=== PATIENT | female | born 1965 | race Caucasian/White ===

== ENCOUNTER 2020-07-01 01:11 | Observation (INO) ==
[2020-07-01] MEDS ORDERED: Isovue-370 500 ML BOTTLE IVP ONE (01:24)
[2020-07-01] MEDS ORDERED: *HR* HYDROmorphone (PF) 1 MG/ML SYRINGE IVP ONE ×2 (01:24→03:49)
[2020-07-01] MEDS ORDERED: 0.9 % Sodium Chloride 1,000 ML IVC ONE (01:24)
[2020-07-01 01:48] LABS: Basophils # 0.1 K/mcL (0.0-0.2); Basophils % 0.4 %; Eosinophils # 0.2 K/mcL (0.0-0.6); Eosinophils % 1.1 %; Hematocrit 39.9 % (35.3-44.9); Hemoglobin 13.7 g/dL (11.5-15.4); Immature Granulocytes % 0.6 % (0-4); Lymphocytes % 13.1 %; Mean Corpuscular HGB Conc 34.3 g/dL (31.6-35.5); Mean Corpuscular Hemoglobin 29.8 pg (28.0-33.3); Mean Corpuscular Volume 86.9 fL (83.0-100.0); Mean Platelet Volume 9.3 fL (9.4-12.4); Monocytes # 1.4 K/mcL (0.0-1.3); Monocytes % 8.8 %; Neutrophils # 11.6 K/mcL (1.6-8.9); Platelet Count 304 K/mcL (140-400); Red Blood Count 4.59 M/mcL (3.82-4.97); White Blood Count 15.3 K/mcL (4.3-11.1)
[2020-07-01 02:05] LABS: Alanine Aminotransferase 15 Units/L (7-52); Albumin 4.1 g/dL (3.5-5.7); Albumin/Globulin Ratio 1.3 (1.1-2.2); Alkaline Phosphatase 50 Units/L (34-104); Aspartate Amino Transferase 17 Units/L (13-39); BUN/Creatinine Ratio 16 (6-26); Bilirubin,Direct 0.1 mg/dL (0.0-0.2); Bilirubin,Indirect 0.5 mg/dL (0.0-1.0); Bilirubin,Total 0.6 mg/dL (0.3-1.0); Blood Urea Nitrogen 18 mg/dL (6-20); Calcium 9.6 mg/dL (8.6-10.3); Carbon Dioxide 21 mEq/L (23-29); Chloride 103 mEq/L (98-107); Globulin 3.2 g/dL (2.4-3.5); Glucose 151 mg/dL (70-105); Lipase 34 Units/L (11-82); Osmolality,Calculated 291 (280-300); Potassium 3.5 mEq/L (3.5-5.1); Sodium 138 mEq/L (136-145); Total Protein 7.3 g/dL (6.4-8.9); eGFR For African Americans > 60 (> 60); eGFR For Non-African Americans 50 (> 60)
[2020-07-01] MEDS ORDERED: Ondansetron 4 MG/2 ML VIAL IVP ONE (02:16)
[2020-07-01 02:40] LABS: Troponin I < 0.03 ng/mL (< 0.04)
[2020-07-01] MEDS ORDERED: Piperacillin/Tazobactam 3.375 GM in 0.9 % Sodium Chloride Mini Bag 100 ML IVPB ONE (03:40)
[2020-07-01] MEDS ORDERED: Ketorolac 15 MG/ML VIAL IVP ONE (04:04)
[2020-07-01] MEDS ORDERED: Ondansetron ODT 4 MG TAB.RAPDIS SL PRN ×2 (04:14→13:41)
[2020-07-01] MEDS ORDERED: Naloxone 0.4 MG/ML INJ IVP PRN ×2 (04:14→13:41)
[2020-07-01 04:26] LABS: Bilirubin,Urine Negative (Negative); Blood,Urine Negative (Negative); Clarity,Urine Clear (Clear); Color,Urine Light-Yellow (Yellow); Glucose,Urine (UA) Normal (Normal); Ketones,Urine 10 mg/dL (Negative); Leukocyte Esterase,Urine Small (Negative); Mucus,Urine Few per lpf (None-Few); Nitrite,Urine Positive (Negative); PH,Urine 6.5 pH Units (5.0-8.0); Protein,Urine Trace mg/dL (Neg-Trace); RBC,Urine 0-3 per hpf (0-3); Specific Gravity,Urine > 1.030 (1.010-1.025); Squamous Epithelial Cell,Urine Moderate per hpf (None-Few); Urobilinogen,Urine Normal (Normal)
[2020-07-01] MEDS ORDERED: D5% in Water 1,000 ML IVC PRN ×2 (04:33→13:41)
[2020-07-01] MEDS ORDERED: Dextrose Gel 15 GM/37.5 ML TUBE PO PRN ×4 (04:33→13:41)
[2020-07-01] MEDS ORDERED: *HR* Dextrose 50 % in Water (Vial) 50 ML VIAL IVP PRN ×2 (04:33→13:41)
[2020-07-01] MEDS ORDERED: Insulin LISPRO 300 UNITS/3 ML VIAL SUBQ SCH (06:00)
[2020-07-01] MEDS ORDERED: *HR* Heparin 5,000 UNIT/ML VIAL SQ SCH (06:00)
[2020-07-01] MEDS ORDERED: *HR* OxyCODONE Immed Rel 5 MG TABLET PO PRN (08:59)
[2020-07-01] MEDS ORDERED: Ondansetron 4 MG/2 ML VIAL IVP PRN (08:59)
[2020-07-01] MEDS ORDERED: *HR* HYDROmorphone PF 0.5 MG/0.5 ML SYRINGE IVP PRN (08:59)
[2020-07-01] MEDS ORDERED: Ringers Solution, Lactated 1,000 ML IVC SCH (09:00)
[2020-07-01] MEDS ORDERED: *HR* Propofol 200 MG/20 ML VIAL IVP ONE (09:12)
[2020-07-01] MEDS ORDERED: *HR* FentaNYL (PF) 100 MCG/2 ML VIAL ONE (09:12)
[2020-07-01] MEDS ORDERED: *HR* Midazolam HCl 2 MG/2 ML VIAL ONE (09:12)
[2020-07-01] MEDS ORDERED: *HR* Rocuronium Bromide 50 MG/5 ML VIAL ONE (09:20)
[2020-07-01] MEDS ORDERED: Lidocaine -MPF 2% 2 ML VIAL ONE (09:20)
[2020-07-01] MEDS ORDERED: *HR* Succinylcholine 200 MG/10 ML VIAL IVP ONE (09:20)
[2020-07-01] MEDS ORDERED: Sugammadex Sodium 200 MG/2 ML VIAL IV ONE (09:20)
[2020-07-01] MEDS ORDERED: Dexamethasone 4 MG/ML VIAL ONE (09:20)
[2020-07-01] MEDS ORDERED: Lidocaine HCL 4 ML Topical Solution (Laryng-O-Jet Kit Sterile Pak) TP ONE (09:20)
[2020-07-01] MEDS ORDERED: Ondansetron 4 MG/2 ML VIAL ONE (09:20)
[2020-07-01] MEDS ORDERED: Ketorolac 30 MG/ML VIAL ONE (09:57)
[2020-07-01] MEDS ORDERED: Acetaminophen IV 1,000 MG/100 ML BAG IVPB ONE (09:59)
[2020-07-01] MEDS ORDERED: Isovue-300 50ML VIAL ONE (10:08)
[2020-07-01] MEDS ORDERED: EPHEDrine 50 MG/ML VIAL ONE (10:32)
[2020-07-01] MEDS ORDERED: *HR* HYDROMORPHONE 2 MG/ML VIAL ONE (10:45)
[2020-07-01] MEDS ORDERED: *HR* Labetalol 20 MG/4 ML SYRINGE IVP ONE (10:54)
[2020-07-01] MEDS ORDERED: Piperacillin/Tazobactam 3.375 GM in 0.9 % Sodium Chloride Mini Bag 100 ML IVPB SCH (11:00)
[2020-07-01] MEDS: Aspirin Enteric Coated 81 MG Tablet PO SCH (14:41)
[2020-07-01] MEDS: Gabapentin 300 MG CAPSULE PO SCH ×2 (14:42→21:27)
[2020-07-01] MEDS: *HR* Heparin 5,000 UNIT/ML VIAL SQ SCH (17:28)
[2020-07-01] MEDS: Insulin LISPRO 300 UNITS/3 ML VIAL SUBQ SCH (18:12)
[2020-07-01] MEDS: Piperacillin/Tazobactam 3.375 GM in 0.9 % Sodium Chloride Mini Bag 100 ML IVPB SCH (18:52)
[2020-07-01] MEDS ORDERED: traZODone 50 MG TABLET PO SCH (21:00)
[2020-07-01] MEDS ORDERED: Carbidopa/Levodopa 25/100 TABLET PO SCH (21:00)
[2020-07-02] MEDS: Insulin LISPRO 300 UNITS/3 ML VIAL SUBQ SCH (02:13)
[2020-07-02] MEDS: Piperacillin/Tazobactam 3.375 GM in 0.9 % Sodium Chloride Mini Bag 100 ML IVPB SCH (02:52)
[2020-07-02] MEDS: *HR* Heparin 5,000 UNIT/ML VIAL SQ SCH (05:06)
[2020-07-02 06:55] LABS: Basophils % 0.1 %; Eosinophils % 0.2 %; Hematocrit 36.3 % (35.3-44.9); Immature Granulocytes % 0.4 % (0-4); Lymphocytes # 1.8 K/mcL (0.6-4.6); Lymphocytes % 11.3 %; Mean Corpuscular HGB Conc 31.1 g/dL (31.6-35.5); Mean Corpuscular Hemoglobin 29.8 pg (28.0-33.3); Mean Platelet Volume 10.2 fL (9.4-12.4); Monocytes # 1.4 K/mcL (0.0-1.3); Monocytes % 8.9 %; Neutrophils # 12.6 K/mcL (1.6-8.9); Platelet Count 257 K/mcL (140-400); Red Blood Count 3.79 M/mcL (3.82-4.97); Red Cell Distribution Width 13.1 % (11.5-14.5); Segmented Neutrophils % 79.1 %; White Blood Count 15.9 K/mcL (4.3-11.1)
[2020-07-02 06:58] LABS: Hemoglobin 11.3 g/dL (11.5-15.4); Mean Corpuscular Volume 95.8 fL (83.0-100.0)
[2020-07-02 07:26] VITALS: BP 126/73
[2020-07-02] MEDS: Gabapentin 300 MG CAPSULE PO SCH (08:34)
[2020-07-02] MEDS: Aspirin Enteric Coated 81 MG Tablet PO SCH (08:35)
[2020-07-02] MEDS ORDERED: Losartan/HCTZ 50-12.5 TABLET PO SCH (09:00)
[2020-07-02 09:41] LABS: BUN/Creatinine Ratio 14 (6-26); Blood Urea Nitrogen 14 mg/dL (6-20); Calcium 8.6 mg/dL (8.6-10.3); Carbon Dioxide 23 mEq/L (23-29); Chloride 105 mEq/L (98-107); Glucose 113 mg/dL (70-105); Osmolality,Calculated 291 (280-300); Sodium 140 mEq/L (136-145); eGFR For African Americans > 60 (> 60); eGFR For Non-African Americans 55 (> 60)
== END 2020-07-02 14:35 | disposition home or self-care (01) ==
LOC: CDU 01:11 → EMEROOARM 01:11 → SUATTDRO 05:14 → CDU 05:30 → 3ANU 18:34
PROVIDERS: ADMIT Internal Medicine; ATTEND Student in an Organized Health Care Education/Training Program